=== PATIENT | female | born 1955 | race Caucasian/White ===

== ENCOUNTER 2019-08-22 09:57 | Outpatient (CLI) | payer MEDICARE, OTHER ==
--- NOTE | 2019-08-22 15:22 | Diagnostic Imaging Report ---
PATIENT MR#: [id number] PATIENT PATIENT NAME: JEROD ANAYA DATE OF : 1955 REFERRING PHYSICIAN: David Colbert EXAM DATE: 08/22/2019 ACCESSION NUMBER: [id number] EXAM DESCRIPTION: DEXA DUAL ENERGY X-RAY ABSORPTIOMETRY (DXA) A DXA scan was performed on August 22, 2019 using a [employer]elle densitometer. IMPRESSION: Based on BMD diagnosis is consistent with osteopenia (based on WHO criteria). Fracture risk is modera te. Treatment is advised. Follow-up exam recommended August 2021. INDICATION: ESTROGEN DEFICIENT, FAMILY HX Technical Quality: Diagnostic RESULTS: Lumbar Spine The BMD measured in the L1-L4 region is 1.497 g/cm2, possibly elevated due to degenerative changes. T -score 2.6 Femoral Neck The BMD measured at the right femoral neck is 0.877 g/cm2. T-score -1.2 Total Hip The BMD measured at the mean total proximal femur is 1.044 g/cm2. T-score 0.3 Read by: Dr. Lobo Farrell Transcribed by: Lobo Farrell Transcribed Date: 08/22/2019 3:20:44 PM Electronically signed by: Dr. Lobo Farrell Date signed: 08/22/2019 3:22:08 PM
== END 2019-08-22 10:07 ==
LOC: RAD 09:57
PROVIDERS: ATTEND Family Medicine
DX: Z13.820 Encounter for screening for osteoporosis (principal); E28.0 Estrogen excess
CPT/HCPCS: 77080